=== PATIENT | male | born 1955 | race Caucasian/White ===

== ENCOUNTER → 2022-06-26 | Day surgery (SDC) | payer OTHER, MEDICARE ==
--- NOTE | 2022-06-26 10:28 | RAD REPORT ---
EXAM DESCRIPTION: US - Biopsy Lymph Node - 06/26/2022 10:18 am CLINICAL HISTORY: R22.1 COMPARISON: No comparisons FINDINGS: Preoperative diagnosis: Enlarged right cervical chain lymph node. Post operative diagnosis: Same. Conscious Sedation: None Fluoroscopy time: None Contrast used: None Estimated blood loss: 10 cc Specimens:6 core samples obtained with 18 gauge core biopsy device IMPRESSION: Technically successful ultrasound-guided core biopsy of an enlarged right cervical chain lymph node.
== END ==
LOC: FNA 08:00
PROVIDERS: ATTEND Surgery
DX: R22.1 Localized swelling, mass and lump, neck (principal)
CPT/HCPCS: 38505; 76942; 88305

== ENCOUNTER 2022-07-05 08:44 | Day surgery (SDC) | payer OTHER, MEDICARE ==
[2022-07-03 17:02] LABS: Potassium 3.7 mmol/L (3.5-5.1)
--- NOTE | 2022-07-04 17:27 | EKG ---
Test Date: 2022-07-03 Test Time: 16:25:41 Solar Consultant: ABRAHAM MEASUREMENT RESULTS: Intervals: Rate: 87 AR: 166 QRSD: 94 QT: 378 QTc: 454 [place]: P: 79 AR: 166 QRS: 64 T: 77 INTERPRETIVE STATEMENTS: Normal sinus rhythm Normal ECG No previous ECG available for comparison Electronically Signed On 07-04-22 17:26:08 [employer] FORMING MACHINE OPERATOR by Carlos Solares
[2022-07-05] MEDS ORDERED: Ringers Lactate 1,000 ML IV ONE (09:20)
[2022-07-05] MEDS ORDERED: LIDOCAINE 1% MPF 5 ML VIAL ONE ×2 (10:37→11:25)
[2022-07-05] MEDS ORDERED: propofoL 200 MG/20 ML VIAL IV ONE ×2 (10:37→11:42)
[2022-07-05 14:00] VITALS: O2SAT 95
[2022-07-05 14:01] VITALS: TEMP 98.5
[2022-07-05 14:04] VITALS: BP 116/65
== END 2022-07-05 11:43 | disposition home or self-care (01) ==
LOC: OR 08:44
PROVIDERS: ATTEND Surgery
PROC: 0DB78ZX Excision of Stomach, Pylorus, Via Natural or Artificial Opening Endoscopic, Diagnostic (ICD-10-PCS; 2022-07-05)
PROC: 0DB28ZX Excision of Middle Esophagus, Via Natural or Artificial Opening Endoscopic, Diagnostic (ICD-10-PCS; 2022-07-05)
PROC: 0DB58ZX Excision of Esophagus, Via Natural or Artificial Opening Endoscopic, Diagnostic (ICD-10-PCS; 2022-07-05)
PROC: 0DB98ZX Excision of Duodenum, Via Natural or Artificial Opening Endoscopic, Diagnostic (ICD-10-PCS; principal; 2022-07-05 10:30)
DX: K21.00 Gastro-esophageal reflux disease with esophagitis, without bleeding (principal); K21.9 Gastro-esophageal reflux disease without esophagitis; K29.50 Unspecified chronic gastritis without bleeding; K29.80 Duodenitis without bleeding; R23.3 Spontaneous ecchymoses; K22.9 Disease of esophagus, unspecified
CPT/HCPCS: 43239; 93005; 80048; 36415; 88312; 88305; J2704; J2001 ×2; J7120